=== PATIENT | female | born 1965 | race Caucasian/White ===

== ENCOUNTER 2016-05-14 11:38 | Emergency (ER) | payer MEDICARE, MEDICAID ==
--- NOTE | 2016-05-14 11:47 | EDM.PDOC ---
ED HISTORY OF PRESENT ILLNESS - General Chief Complaint: Respiratory Problem Stated Complaint: FEVER Time Seen by Provider: 05/14/16 11:46 Source of Information: Reports: Old records, Provider (Ivana CARTER), RN, RN notes reviewed, Other (caregiver) History Limitations: Reports: Physical impairment (Dev. delayed pt.) - History of Present Illness INITIAL COMMENTS - FREE TEXT/NARRATIVE: Sent from [facility] by POV at the request of Ivana CARTER with report of cough, fever, and decreased level of consciousness. Pt is a resident of [facility] with Hx of Dev. delay and congenital heart disease with chronically low oxygen sats. Pt unable to provide any Hx. Symptom Onset Date: 05/14/16 Timing/Duration: Reports: Constant Severity: moderate Location, General: Reports: generalized Improves with: Reports: None Worsens with: Reports: None Context, General: Reports: Sick contact (fdc resident) Treatments DATA ANALYSIS ASSISTANT: Reports: Other (see below) (none) - Related Data Allergies/ADRs: Allergies Allergy/AdvReac Type Severity Reaction Status Date / Time No Known Allergies Allergy Verified 09/27/14 16:26 Home Meds: Home Meds Aspirin 1 tab PO DAILY 09/27/14 [History] Benztropine Mesylate 1 tab PO BID 09/27/14 [History] Famotidine [Pepcid] 1 tab PO BID 09/27/14 [History] Oxybutynin [Oxybutynin ER] 5 mg PO BEDTIME 09/27/14 [History] PARoxetine [Paxil] 20 mg PO DAILY 09/27/14 [History] Vitamin E (dl, acetate) [Vitamin E] 1 tab PO DAILY 09/27/14 [History] atorvaSTATin [Lipitor] 1 tab PO BEDTIME 09/27/14 [History] diphenhydrAMINE [Benadryl] 1 tab PO BEDTIME 09/27/14 [History] risperiDONE [RisperiDAL] 0.5 tab PO QID 09/27/14 [History] Past Medical History HEENT History: Reports: Impaired vision Other HEENT History: tmj Cardiovascular History: Reports: Congenital septal defect, Heart murmur, High cholesterol, Other (see below) (chronic tachycardia) Respiratory History: Reports: Other (see below) (Chronic hypoxia) Genitourinary History: Reports: Urinary incontinence Psychiatric History: Reports: Depression, Developmental delay, Learning disability, Psychosis Other Psychiatric History: mood disorder with psychosis, profound hearing loss, 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 delayed pt.) ED EXAM, GENERAL - Physical Exam Exam: See Below Exam Limited By: Physical impairment (Dev. Delayed pt) General Appearance: alert, no apparent distress Eye Exam: bilateral eye: normal inspection Ears: normal external exam Nose: normal inspection, normal mucosa, no blood Throat/Mouth: No airway compromise, Other (mild pharyngeal erythema) Head: atraumatic, normocephalic Neck: normal inspection, supple, non-tender, full range of motion. No: lymphadenopathy (L), lymphadenopathy (R) Respiratory/Chest: no respiratory distress, no accessory muscle use, chest non- tender, decreased breath sounds, other (harsh dry cough). No: crackles, rales, rhonchi, wheezing, stridor Cardiovascular: normal peripheral pulses, regular rate, rhythm, tachycardia, systolic murmur (2/6) GI/Abdominal: normal bowel sounds, soft, non tender, no distention Back Exam: normal inspection Extremities: normal inspection Neurological: alert, no motor/sensory deficits, other (at neuro. baseline per caregiver) Skin Exam: Warm, Dry, Intact, Normal color, No rash Course - Vital Signs Last Recorded V/S: Last Vital Signs Temp 36.6 C 05/14/16 12:12 Pulse 97 05/14/16 13:45 Resp 15 05/14/16 12:12 BP 128/78 05/14/16 12:12 Pulse Ox 86 L 05/14/16 12:12 - Orders/Labs/Meds Orders: Active Orders 24 hr Category Date Time Status Cardiac Monitoring [RC] . DIRECTED Care 05/14/16 11:52 Active EKG 12 Lead [EKG Documentation Completion] [RC] STAT Care 05/14/16 11:53 Active Overnight Pulse Oximetry [RC] Click To Edit Care 05/14/16 11:54 Active Peripheral IV Care [RC] . DIRECTED Care 05/14/16 11:54 Active RT Aerosol Therapy [RC] ASDIRECTED Care 05/14/16 12:54 Active B. PERTUSSIS ABS, IGA, IGG,IGM [REF] Stat Lab 05/14/16 14:36 Ordered CULTURE BLOOD [] Stat Lab 05/14/16 12:10 Received CULTURE BLOOD [] Stat Lab 05/14/16 12:10 Received CULTURE STREP A CONFIRMATION [] Stat Lab 05/14/16 12:30 Results INFLUENZA A+B AG SCREEN [] Stat Lab 05/14/16 12:30 Results STREP SCRN A RAPID W CULT CONF [] Stat Lab 05/14/16 12:30 Results UA W/MICROSCOPIC [URIN] Stat Lab 05/14/16 11:54 Uncollected Sodium Chloride 0.9% [Normal Saline] 500 ml Med 05/14/16 13:00 Active IV .BOLUS Sodium Chloride 0.9% [Saline Flush] Med 05/14/16 11:53 Active 10 ml FLUSH ASDIRECTED PRN Blood Culture x2 Reflex Set [OM.PC] Stat Oth 05/14/16 11:54 Ordered Peripheral IV Insertion Adult [OM.PC] Stat Oth 05/14/16 11:53 Ordered Pulse Oximetry Continuous Monitoring [OM.PC] Routine Oth 05/14/16 11:54 Ordered RT Supplemental Oxygen Titration [RESPCARE] Stat Ot 05/14/16 11:54 Active Medication Orders Sodium Chloride (Normal Saline) 500 mls @ 500 mls/hr IV .BOLUS JABARI Last Admin: 05/14/16 14:12 Dose: 500 mls/hr Sodium Chloride (Saline Flush) 10 ml FLUSH ASDIRECTED PRN PRN Reason: Keep Vein Open Last Admin: 05/14/16 13:38 Dose: 10 ml Labs: Laboratory Tests 05/14/16 05/14/16 05/14/16 Range/Units 12:10 12:10 12:10 WBC 6.0 (5.0-10.0) 10^3/uL RBC 5.16 (4.2-5.4) 10^6/uL Hgb 16.0 (12.0-16.0) g/dL Hct 49.6 H (37.0-47.0) % MCV 96.1 (80-100) fL MCH 31.0 (27.0-34.0) pg MCHC 32.3 L (33.0-35.0) g/dL Plt Count 190 (150-450) 10^3/uL Neut % (Auto) 69.3 (42.2-75.2) % Lymph % (Auto) 18.6 L (20.5-50.1) % [place] % (Auto) 11.6 H (2-8) % Eos % (Auto) 0.2 L (1.0-3.0) % Baso % (Auto) 0.3 (0.0-1.0) % Sodium 132 L (135-145) mmol/L Potassium 3.8 (3.6-5.0) mmol/L Chloride 95 L (101-111) mmol/L Carbon Dioxide 29.0 (21.0-31.0) mmol/L Anion Gap 11.8 BUN 13 (7-18) mg/dL Creatinine 1.0 (0.6-1.3) mg/dL Est Cr Clr Drug Dosing 47.27 mL/min Estimated GFR (MDRD) 58 BUN/Creatinine Ratio 13.00 Glucose 107 H (74-105) mg/dL Lactic Acid (0.5-2.2) mmol/L Calcium 8.7 (8.4-10.2) mg/dl Total Bilirubin 0.6 (0.2-1.0) mg/dL AST 19 (10-42) IU/L ALT 19 (10-60) IU/L Alkaline Phosphatase 74 (42-121) IU/L Creatine Kinase 62 (26-174) IU/L Creatine Kinase Index 1.8 (0-2.4) % CK-MB (CK-2) 1.10 (0.4-4.7) ng/mL Troponin I < 0.02 (0.00-0.02) ng/ml B-Natriuretic Peptide 10 (0-100) pg/ml Total Protein 7.6 (6.7-8.2) g/dl Albumin 4.0 (3.2-5.5) g/dl Globulin 3.6 Albumin/Globulin Ratio 1.11 05/14/16 Range/Units 12:10 WBC (5.0-10.0) 10^3/uL RBC (4.2-5.4) 10^6/uL Hgb (12.0-16.0) g/dL Hct (37.0-47.0) % MCV (80-100) fL MCH (27.0-34.0) pg MCHC (33.0-35.0) g/dL Plt Count (150-450) 10^3/uL Neut % (Auto) (42.2-75.2) % Lymph % (Auto) (20.5-50.1) % [place] % (Auto) (2-8) % Eos % (Auto) (1.0-3.0) % Baso % (Auto) (0.0-1.0) % Sodium (135-145) mmol/L Potassium (3.6-5.0) mmol/L Chloride (101-111) mmol/L Carbon Dioxide (21.0-31.0) mmol/L Anion Gap BUN (7-18) mg/dL Creatinine (0.6-1.3) mg/dL Est Cr Clr Drug Dosing mL/min Estimated GFR (MDRD) BUN/Creatinine Ratio Glucose (74-105) mg/dL Lactic Acid 1.2 (0.5-2.2) mmol/L Calcium (8.4-10.2) mg/dl Total Bilirubin (0.2-1.0) mg/dL AST (10-42) IU/L ALT (10-60) IU/L Alkaline Phosphatase (42-121) IU/L Creatine Kinase (26-174) IU/L Creatine Kinase Index (0-2.4) % CK-MB (CK-2) (0.4-4.7) ng/mL Troponin I (0.00-0.02) ng/ml B-Natriuretic Peptide (0-100) pg/ml Total Protein (6.7-8.2) g/dl Albumin (3.2-5.5) g/dl Globulin Albumin/Globulin Ratio Meds: Medications Generic Name Dose Route Start Last Admin Trade Name Freq PRN Reason Stop Dose Admin Sodium Chloride 500 mls @ 500 mls/hr 05/14/16 13:00 05/14/16 14:12 Normal Saline IV 500 mls/hr .BOLUS JABARI Administration Sodium Chloride 10 ml 05/14/16 11:53 05/14/16 13:38 Saline Flush FLUSH 10 ml ASDIRECTED PRN Administration Keep Vein Open Discontinued Medications Generic Name Dose Route Start Last Admin Trade Name Freq PRN Reason Stop Dose Admin Albuterol/Ipratropium 3 ml 05/14/16 12:54 05/14/16 13:45 Duoneb 3.0-0.5 Mg/3 Ml NEB 05/14/16 12:55 3 ml ONETIME ONE Administration Azithromycin 500 mg 05/14/16 14:39 05/14/16 14:45 Zithromax PO 05/14/16 14:40 500 mg ONETIME ONE Administration Benzonatate 200 mg 05/14/16 12:54 05/14/16 13:48 Tessalon Perles PO 05/14/16 12:55 200 mg ONETIME ONE Administration Ceftriaxone Sodium 1 gm/ 50 mls @ 100 mls/hr 05/14/16 12:54 05/14/16 13:39 Sodium Chloride IV 05/14/16 13:23 100 mls/hr ONETIME ONE Administration Methylprednisolone Sodium Succinate 125 mg 05/14/16 12:54 05/14/16 13:37 Solu-Medrol IVPUSH 05/14/16 12:55 125 mg ONETIME ONE Administration - Radiology Interpretation Free Text/Narrative:: CXR: no acute process per Rad. report. CT Results Date: 05/14/16 Departure - Departure Time of Disposition: 14:40 Disposition: Home, Self-Care 01 Condition: fair Clinical Impression: Hypoxia Acute bronchitis Qualifiers: Bronchitis organism: unspecified organism Qualified Code(s): J20.9 - Acute bronchitis, unspecified Pharyngitis Qualifiers: Pharyngitis/tonsillitis etiology: unspecified etiology Qualified Code(s): J02.9 - Acute pharyngitis, unspecified Instructions: Acute Bronchitis Forms: ED Department Discharge Additional Instructions: Rx: Zithromax 250mg Rx: Tessalon Perles 200mg Follow up in clinic in 4 to 5 days. Return to ER if worse at any time, or if any new symptoms develop. - My Orders Last 24 Hours: My Active Orders 05/14/16 11:52 Cardiac Monitoring [RC] . DIRECTED 05/14/16 11:53 EKG 12 Lead [EKG Documentation Completion] [RC] STAT Sodium Chloride 0.9% [Saline Flush] 10 ml FLUSH ASDIRECTED PRN Peripheral IV Insertion Adult [OM.PC] Stat 03/02/17 11:54 Overnight Pulse Oximetry [RC] Click To Edit Peripheral IV Care [RC] . DIRECTED UA W/MICROSCOPIC [URIN] Stat Blood Culture x2 Reflex Set [OM.PC] Stat Pulse Oximetry Continuous Monitoring [OM.PC] Routine RT Supplemental Oxygen Titration [RESPCARE] Stat 05/14/16 12:10 CULTURE BLOOD [BC] Stat CULTURE BLOOD [BC] Stat 05/14/16 12:30 CULTURE STREP A CONFIRMATION [RM] Stat INFLUENZA A+B AG SCREEN [RM] Stat STREP SCRN A RAPID W CULT CONF [RM] Stat 05/14/16 12:54 RT Aerosol Therapy [RC] ASDIRECTED 05/14/16 13:00 Sodium Chloride 0.9% [Normal Saline] 500 ml IV .BOLUS 05/14/16 14:36 B. PERTUSSIS ABS, IGA, IGG,IGM [REF] Stat - Assessment/Plan Last 24 Hours: My Active Orders 05/14/16 11:52 Cardiac Monitoring [RC] . DIRECTED 05/14/16 11:53 EKG 12 Lead [EKG Documentation Completion] [RC] STAT Sodium Chloride 0.9% [Saline Flush] 10 ml FLUSH ASDIRECTED PRN Peripheral IV Insertion Adult [OM.PC] Stat 05/14/16 11:54 Overnight Pulse Oximetry [RC] Click To Edit Peripheral IV Care [RC] . DIRECTED UA W/MICROSCOPIC [URIN] Stat Blood Culture x2 Reflex Set [OM.PC] Stat Pulse Oximetry Continuous Monitoring [OM.PC] Routine RT Supplemental Oxygen Titration [RESPCARE] Stat 05/14/16 12:10 CULTURE BLOOD [BC] Stat CULTURE BLOOD [BC] Stat 05/14/16 12:30 CULTURE STREP A CONFIRMATION [RM] Stat INFLUENZA A+B AG SCREEN [RM] Stat STREP SCRN A RAPID W CULT CONF [RM] Stat 05/14/16 12:54 RT Aerosol Therapy [RC] ASDIRECTED 05/14/16 13:00 Sodium Chloride 0.9% [Normal Saline] 500 ml IV .BOLUS 05/14/16 14:36 B. PERTUSSIS ABS, IGA, IGG,IGM [REF] Stat
[2016-05-14] MEDS ORDERED: Sodium Chloride 0.9% 10 ML Syringe FLUSH PRN (11:53)
[2016-05-14 12:15] VITALS: BP 128/78
[2016-05-14 12:40] LABS: CHLORIDE,CL 95 mmol/L (101-111); SODIUM,NA 132 mmol/L (135-145)
[2016-05-14] MEDS ORDERED: cefTRIAXone 1 GM in Sodium Chloride 0.9% 50 ML IV ONE (12:54)
[2016-05-14] MEDS ORDERED: Benzonatate 100 MG Cap PO ONE (12:54)
[2016-05-14] MEDS ORDERED: methylPREDNISolone Sodium Succinate 125 MG/2 ML SDV IVPUSH ONE (12:54)
[2016-05-14] MEDS ORDERED: Albuterol/Ipratropium 3.0-0.5 MG/3 ML Neb Soln NEB ONE (12:54)
[2016-05-14] MEDS ORDERED: Sodium Chloride 0.9% 500 ML IV SCH (13:00)
--- NOTE | 2016-05-14 14:22 | CR ---
CLINICAL HISTORY: 51-year-old female with cough and hypoxia. INTERPRETATION: Chronic hypertrophic arthritic changes dorsal spine. External compliance monitor leads and oxygen cannula. Normal cardiac silhouette without new signs of heart failure, lung mass or focal lobar pneumonia (co mpared to 29 Jul 2015 exam). No lung mass, hilar lymphadenopathy or atelectasis/collapse. No pneumothorax. CONCLUSION: No acute new cardiopulmonary abnormality.
[2016-05-14] MEDS ORDERED: Azithromycin 250 MG Tab PO ONE (14:39)
--- NOTE | 2016-05-26 17:58 | EKG ---
05/14/2016 - АЛЕКСАНДР MOROCHO - TIME OF EK hours. EKG shows sinus tachycardia at a rate of 109 beats per minute. There is a right bundle branch block present. [facility] /[id number]
== END 2016-05-14 15:31 | disposition home or self-care (01) ==
LOC: DL.ED 11:38
DX: J20.9 Acute bronchitis, unspecified (principal); J02.9 Acute pharyngitis, unspecified; R09.02 Hypoxemia; E78.00 Pure hypercholesterolemia, unspecified; Z79.82 Long term (current) use of aspirin; Z79.899 Other long term (current) drug therapy
CPT/HCPCS: 36415; 71010; 80053; 82550; 82553; 83605; 83880; 84484; 85025; 87040; 87081; 87430; 87804; 93005; 94640; 96361; 96365; 96375; 99284; A9270; J0696; J2930; J7040; J7050; 87798; 93010

== ENCOUNTER 2017-10-22 15:31 | Emergency (ER) | payer MEDICARE, MEDICAID ==
[2017-10-22 16:27] VITALS: BP 152/93
[2017-10-22 17:40] LABS: ANION GAP 9.9; CHLORIDE,CL 97 mmol/L (101-111); SODIUM,NA 134 mmol/L (135-145)
--- NOTE | 2017-10-22 18:04 | EDM.PDOC ---
Scribed by Jeannie Oconnell 10/22/17 1939 for Jonathan Bonilla MD ED HPI GENERAL MEDICAL PROBLEM - General Chief Complaint: Respiratory Problem Stated Complaint: SICK [phone] Time Seen by Provider: 10/22/17 16:55 Source of Information: Reports: RN, RN Notes Reviewed, Other (grounds caretaker) History Limitations: Reports: No Limitations - History of Present Illness INITIAL COMMENTS - FREE TEXT/NARRATIVE: Patient presents to ER with cough for 2 weeks worse the last several days. Denies fever. Patient is deaf and nonverbal with developmental delay. History is from grounds caretaker. Cough is reported to be dry and nonproductive. No other history is available at this time. Onset: Gradual Duration: Getting Worse Location: Reports: Chest Quality: Reports: Ache Severity: Moderate Improves with: Reports: None Worsens with: Reports: None Associated Symptoms: Reports: No Other Symptoms - Related Data Allergies Allergy/AdvReac Type Severity Reaction Status Date / Time No Known Allergies Allergy Verified 10/22/17 16:27 Home Meds: Home Meds Aspirin 1 tab PO DAILY 09/27/14 [History] PARoxetine [Paxil] 20 mg PO DAILY 09/27/14 [History] Vitamin E (dl, acetate) [Vitamin E] 1 tab PO DAILY 09/27/14 [History] atorvaSTATin [Lipitor] 1 tab PO BEDTIME 09/27/14 [History] risperiDONE [RisperiDAL] 0.5 tab PO TID 09/27/14 [History] Omeprazole 20 mg PO DAILY 10/22/17 [History] Polyethylene Glycol 3350 [MiraLAX] 17 gm PO ASDIRECTED 10/22/17 [History] risperiDONE 1 mg PO DAILY 10/22/17 [History] Past Medical History HEENT History: Reports: Impaired Vision, Other (See Below) Other HEENT History: wears glasses, is deaf, understands sign language Cardiovascular History: Reports: Congenital Septal Defect, Heart Murmur, High Cholesterol, Other (See Below) Respiratory History: Reports: Other (See Below) Other Respiratory History: wears O2 at night Gastrointestinal History: Reports: GERD Genitourinary History: Reports: Urinary Incontinence SHOE CEMENTER History: Reports: None Musculoskeletal History: Reports: None Neurological History: Reports: None Psychiatric History: Reports: Depression, Developmental Delay, Learning Disability, Psychosis Other Psychiatric History: mood disorder with psychosis, profound hearing loss, mild mental retardation Endocrine/Metabolic History: Reports: None Hematologic History: Reports: None Immunologic History: Reports: None Oncologic (Cancer) History: Reports: None Other Dermatologic History: congenital rubella disorder - Past Surgical History Head Surgeries/Procedures: Reports: None Other GI Surgeries/Procedures: hiatal hernia Social & Family History - Family History Family Medical History: Unobtainable - Tobacco Use Smoking Status *Q: Never Smoker Second Hand Smoke Exposure: No - Caffeine Use Caffeine Use: Reports: Soda - Recreational Drug Use Recreational Drug Use: No - Living Situation & Occupation Living situation: Reports: Other Occupation: Disabled ED ROS GENERAL - Review of Systems Review Of Systems: ROS reveals no pertinent complaints other than HPI. ED EXAM, GENERAL - Physical Exam Exam: See Below Exam Limited By: Other (developmentally delayed) General Appearance: Alert, No Apparent Distress Eye Exam: Bilateral Eye: Normal Inspection Nose: Normal Inspection Throat/Mouth: Other (patient wound not cooperate with exam.) Head: Atraumatic, Normocephalic Neck: Normal Inspection, Supple, Non-Tender, Full Range of Motion Respiratory/Chest: No Respiratory Distress, Other (harsh dry cough) Cardiovascular: Regular Rate, Rhythm, Tachycardia GI/Abdominal: Soft (and benign) (Female) Exam: Deferred Rectal (Female) Exam: Deferred Extremities: Normal Inspection, Normal Range of Motion, Non-Tender, Normal Capillary Refill, No Pedal Edema Neurological: Other (no acute deficits) Skin Exam: Warm, Dry, Intact, Normal Color, No Rash Course - Vital Signs Last Recorded V/S: Last Vital Signs Temp 36.0 C 10/22/17 16:26 Pulse 103 H 10/22/17 16:26 Resp 20 10/22/17 16:26 BP 152/93 H 10/22/17 16:26 Pulse Ox 88 L 10/22/17 16:26 - Orders/Labs/Meds Orders: Active Orders 24 hr Category Date Time Status Chest 1V Frontal [CR] Stat Exams 10/22/17 16:55 Taken Labs: Laboratory Tests 10/22/17 10/22/17 10/22/17 Range/Units 17:05 17:05 17:05 WBC 6.9 (5.0-10.0) 10^3/uL RBC 5.11 (4.2-5.4) 10^6/uL Hgb 15.7 (12.0-16.0) g/dL Hct 48.9 H (37.0-47.0) % MCV 95.7 (80-100) fL MCH 30.7 (27.0-34.0) pg MCHC 32.1 L (33.0-35.0) g/dL Plt Count 215 (150-450) 10^3/uL Neut % (Auto) 63.3 (42.2-75.2) % Lymph % (Auto) 23.3 (20.5-50.1) % [place] % (Auto) 11.1 H (2-8) % Eos % (Auto) 2.0 (1.0-3.0) % Baso % (Auto) 0.3 (0.0-1.0) % Sodium 134 L (135-145) mmol/L Potassium 3.9 (3.6-5.0) mmol/L Chloride 97 L (101-111) mmol/L Carbon Dioxide 31.0 (21.0-31.0) mmol/L Anion Gap 9.9 BUN 15 (7-18) mg/dL Creatinine 0.7 (0.6-1.3) mg/dL Est Cr Clr Drug Dosing TNP Estimated GFR (MDRD) > 60 BUN/Creatinine Ratio 21.42 Glucose 78 (74-105) mg/dL Lactic Acid 1.1 (0.5-2.2) mmol/L Calcium 9.0 (8.4-10.2) mg/dl Total Bilirubin 0.6 (0.2-1.0) mg/dL AST 20 (10-42) IU/L ALT 20 (10-60) IU/L Alkaline Phosphatase 69 (42-121) IU/L Total Protein 6.9 (6.7-8.2) g/dl Albumin 3.7 (3.2-5.5) g/dl Globulin 3.2 Albumin/Globulin Ratio 1.16 Urine Color (YELLOW) Urine Appearance (CLEAR) Urine pH (5.0-9.0) Ur Specific [place] (1.005-1.030) Urine Protein (NEGATIVE) Urine Glucose (UA) (NEGATIVE) Urine Ketones (NEGATIVE) Urine Occult Blood (NEGATIVE) Urine Nitrite (NEGATIVE) Urine Bilirubin (NEGATIVE) Urine Urobilinogen (0.2-1.0) mg/dL Ur Leukocyte Esterase (NEGATIVE) Urine RBC /HPF Urine WBC (0-5/HPF) /HPF Ur Epithelial Cells /HPF Urine Bacteria (0-FEW/HPF) /HPF 10/22/17 Range/Units 17:23 WBC (5.0-10.0) 10^3/uL RBC (4.2-5.4) 10^6/uL Hgb (12.0-16.0) g/dL Hct (37.0-47.0) % MCV (80-100) fL MCH (27.0-34.0) pg MCHC (33.0-35.0) g/dL Plt Count (150-450) 10^3/uL Neut % (Auto) (42.2-75.2) % Lymph % (Auto) (20.5-50.1) % [place] % (Auto) (2-8) % Eos % (Auto) (1.0-3.0) % Baso % (Auto) (0.0-1.0) % Sodium (135-145) mmol/L Potassium (3.6-5.0) mmol/L Chloride (101-111) mmol/L Carbon Dioxide (21.0-31.0) mmol/L Anion Gap BUN (7-18) mg/dL Creatinine (0.6-1.3) mg/dL Est Cr Clr Drug Dosing Estimated GFR (MDRD) BUN/Creatinine Ratio Glucose (74-105) mg/dL Lactic Acid (0.5-2.2) mmol/L Calcium (8.4-10.2) mg/dl Total Bilirubin (0.2-1.0) mg/dL AST (10-42) IU/L ALT (10-60) IU/L Alkaline Phosphatase (42-121) IU/L Total Protein (6.7-8.2) g/dl Albumin (3.2-5.5) g/dl Globulin Albumin/Globulin Ratio Urine Color Straw (YELLOW) Urine Appearance Clear (CLEAR) Urine pH 6.0 (5.0-9.0) Ur Specific [place] <= 1.005 (1.005-1.030) Urine Protein Negative (NEGATIVE) Urine Glucose (UA) Negative (NEGATIVE) Urine Ketones Negative (NEGATIVE) Urine Occult Blood Negative (NEGATIVE) Urine Nitrite Negative (NEGATIVE) Urine Bilirubin Negative (NEGATIVE) Urine Urobilinogen 0.2 (0.2-1.0) mg/dL Ur Leukocyte Esterase Small H (NEGATIVE) Urine RBC 0-5 /HPF Urine WBC 0-5 (0-5/HPF) /HPF Ur Epithelial Cells Few /HPF Urine Bacteria Occasional (0-FEW/HPF) /HPF - Radiology Interpretation Free Text/Narrative:: Chest x-ray: Atelectasis and/or early infiltrative changes within both lung bases. See rad report. Departure - Departure Time of Disposition: 17:50 Disposition: Home, Self-Care 01 Condition: Fair Clinical Impression: Atelectasis of both lungs Pneumonia Qualifiers: Pneumonia type: due to unspecified organism Laterality: bilateral Lung location : lower lobe of lung Qualified Code(s): J18.1 - Lobar pneumonia, unspecified organism - Discharge Information Instructions: Atelectasis, Adult, Community-Acquired Pneumonia, Adult, Easy-to- Read Referrals: Ivana Harris, [employer]AKING [employer] SUPERVISOR [Primary Care Provider] - Forms: ED Department Discharge Additional Instructions: RX: Levaguin 500mg. Follow up next week with your primary care provider. - My Orders Last 24 Hours: My Active Orders 10/22/17 16:55 Chest 1V Frontal [CR] Stat - Assessment/Plan Last 24 Hours: My Active Orders 10/22/17 16:55 Chest 1V Frontal [CR] Stat I have read and agree with the documentation that has been completed regarding this visit. By signing this record, I attest that the documentation was completed in my physical presence and is an accurate record of the encounter.
== END 2017-10-22 18:34 | disposition home or self-care (01) ==
LOC: DL.ED 15:31
DX: J18.9 Pneumonia, unspecified organism (principal); J98.11 Atelectasis; Z79.899 Other long term (current) drug therapy; Z79.82 Long term (current) use of aspirin
CPT/HCPCS: 36415; 71045; 80053; 81001; 83605; 85025; 99283; 99285

== ENCOUNTER 2019-06-14 14:30 | Emergency (ER) | payer MEDICARE, MEDICAID ==
[2019-06-14 14:42] VITALS: BP 134/85; PULSE 106
--- NOTE | 2019-06-14 14:50 | EDM.PDOC ---
ED HPI GENERAL MEDICAL PROBLEM - General Chief Complaint: Respiratory Problem Stated Complaint: COUGH, SORE THROAT Time Seen by Provider: 06/14/19 14:49 Source of Information: Reports: Old Records, RN, RN Notes Reviewed, Other ( Caregiver) History Limitations: Reports: Other (Deaf, non-verbal) - History of Present Illness INITIAL COMMENTS - FREE TEXT/NARRATIVE: Pt presented to ER by caregiver from [facility] apartment with report of cough x2 weeks with sore throat and low oxygen saturations. Pt has Hx of MR and is deaf. Hx of chronic hypoxia with supplemental home oxygen use at night. Pt is unable to provide any history. Caregiver does not think pt has had any fevers. Pt was able to ambulate to the ER independently. Caregiver reports pt's roommate tested negative for Covid-19 four days ago. Onset: Unknown/Unsure Duration: Week(s): (2), Constant Location: Reports: Chest Severity: Moderate Improves with: Reports: None Worsens with: Reports: None Context: Reports: Sick Contact (unknown) - Related Data Allergies Allergy/AdvReac Type Severity Reaction Status Date / Time No Known Allergies Allergy Verified 06/14/19 14:51 Home Meds: Home Meds Aspirin 325 mg PO DAILY 09/27/14 [History] PARoxetine [Paxil] 20 mg PO DAILY 09/27/14 [History] Vitamin E (dl, acetate) [Vitamin E] 400 units PO DAILY 09/27/14 [History] atorvaSTATin [Lipitor] 10 mg PO BEDTIME 09/27/14 [History] risperiDONE [RisperiDAL] 0.5 tab PO ASDIRECTED 09/27/14 [History] Omeprazole 20 mg PO DAILY 10/22/17 [History] polyethylene glycoL 3350 [MiraLAX] 17 gm PO ASDIRECTED 10/22/17 [History] risperiDONE 1 mg PO ASDIRECTED 10/22/17 [History] Past Medical History HEENT History: Reports: Impaired Vision, Other (See Below) Other HEENT History: wears glasses, is deaf, understands sign language Cardiovascular History: Reports: Congenital Septal Defect, Heart Murmur, High Cholesterol, Other (See Below) Respiratory History: Reports: SOB, Other (See Below) (Chronic hypoxia) Other Respiratory History: wears O2 at night Gastrointestinal History: Reports: GERD Genitourinary History: Reports: Urinary Incontinence 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 Musculoskeletal History: Reports: None Neurological History: Reports: None Psychiatric History: Reports: Depression, Developmental Delay, Learning Disability, Psychosis Other Psychiatric History: mood disorder with psychosis, profound hearing loss, mild mental retardation Endocrine/Metabolic History: Reports: None Hematologic History: Reports: None Immunologic History: Reports: None Oncologic (Cancer) History: Reports: None Other Dermatologic History: congenital rubella disorder - Past Surgical History Head Surgeries/Procedures: Reports: None Other GI Surgeries/Procedures: hiatal hernia Social & Family History - Family History Family Medical History: Unobtainable - Caffeine Use Caffeine Use: Reports: Soda - Living Situation & Occupation Living situation: Reports: Other Occupation: Disabled ED ROS GENERAL - Review of Systems Review Of Systems: Unable To Obtain Reason Not Obtained: non-verbal ED EXAM, GENERAL - Physical Exam Exam: See Below Exam Limited By: Uncooperative (MR, deaf) General Appearance: Alert, No Apparent Distress Ears: Other (deaf) Nose: Normal Inspection Throat/Mouth: Normal Lips, No Airway Compromise. No: Perioral Cyanosis Head: Atraumatic, Normocephalic Neck: Normal Inspection, Full Range of Motion Respiratory/Chest: No Respiratory Distress, No Accessory Muscle Use, Decreased Breath Sounds, Other (Cough) Cardiovascular: Regular Rate, Rhythm, Tachycardia GI/Abdominal: Normal Bowel Sounds, Soft Extremities: Normal Range of Motion Neurological: Alert, No Motor/Sensory Deficits Skin Exam: Warm, Dry Course - Vital Signs Last Recorded V/S: Last Vital Signs Temp 97.9 F 06/14/19 14:38 Pulse 106 H 06/14/19 14:38 Resp 26 H 06/14/19 14:38 BP 134/85 06/14/19 14:38 Pulse Ox 74 L 06/14/19 14:38 - Orders/Labs/Meds Orders: Active Orders 24 hr Category Date Time Status Peripheral IV Care [RC] . DIRECTED Care 06/14/19 15:16 Active CULTURE BLOOD [BC] Stat Lab 06/14/19 15:10 Received CULTURE STREP A CONFIRMATION [RM] Stat Lab 06/14/19 15:10 Results STREP SCRN A RAPID W CULT CONF [RM] Stat Lab 06/14/19 15:10 Results Sodium Chloride 0.9% [Saline Flush] Med 06/14/19 15:16 Active 10 ml FLUSH ASDIRECTED PRN Isolation [COMM] Routine Oth 06/14/19 15:15 Active Peripheral IV Insertion Adult [OM.PC] Stat Oth 06/14/19 15:15 Ordered Medication Orders Sodium Chloride (Saline Flush) 10 ml FLUSH ASDIRECTED PRN PRN Reason: Keep Vein Open Last Admin: 06/14/19 15:20 Dose: 10 ml Labs: Laboratory Tests 06/14/19 06/14/19 06/14/19 Range/Units 15:10 15:10 15:10 WBC 6.3 (5.0-10.0) 10^3/uL RBC 5.51 H (4.2-5.4) 10^6/uL Hgb 16.9 H (12.0-16.0) g/dL Hct 53.5 H (37.0-47.0) % MCV 97.1 (80-100) fL MCH 30.7 (27.0-34.0) pg MCHC 31.6 L (33.0-35.0) g/dL Plt Count 204 (150-450) 10^3/uL Neut % (Auto) 60.5 (42.2-75.2) % Lymph % (Auto) 22.8 (20.5-50.1) % Charlton % (Auto) 10.4 H (2-8) % Eos % (Auto) 5.8 H (1.0-3.0) % Baso % (Auto) 0.5 (0.0-1.0) % Add Manual Diff Yes Neutrophils % (Manual) 60 (42-75) % Lymphocytes % (Manual) 27 (20-50) % Monocytes % (Manual) 7 (2-8) % Eosinophils % (Manual) 6 H (1-3) % Sodium 141 (136-145) mmol/L Potassium 4.4 (3.5-5.1) mmol/L Chloride 101 (98-107) mmol/L Carbon Dioxide 36 H (21-32) mmol/L Anion Gap 8.4 (7-13) mEq/L BUN 14 (7-18) mg/dL Creatinine 0.89 (0.55-1.02) mg/dL Est Cr Clr Drug Dosing 51.30 mL/min Estimated GFR (MDRD) > 60 BUN/Creatinine Ratio 15.7 (No establ ref range) Glucose 113 H (74-99) mg/dL Lactic Acid 1.5 (0.4-2.0) mmol/L Calcium 8.0 L (8.5-10.1) mg/dL Total Bilirubin 0.3 (0.2-1.0) mg/dL AST 15 (15-37) U/L ALT 24 (14-59) U/L Alkaline Phosphatase 79 (46-116) U/L B-Natriuretic Peptide < 5 (0-100) pg/ml Total Protein 6.6 (6.4-8.2) g/dL Albumin 3.1 L (3.4-5.0) g/dL Globulin 3.5 Albumin/Globulin Ratio 0.89 Influenza A/B: negative Rapid Strep: negative Meds: Medications Generic Name Dose Route Start Last Admin Trade Name Freq PRN Reason Stop Dose Admin Sodium Chloride 10 ml 06/14/19 15:16 06/14/19 15:20 Saline Flush FLUSH 10 ml ASDIRECTED PRN Administration Keep Vein Open - Radiology Interpretation Free Text/Narrative:: XR Chest: no acute process per Rad. report. Departure - Departure Time of Disposition: 17:20 Disposition: Home, Self-Care 01 Condition: Good Clinical Impression: Acute viral bronchitis, Chronic respiratory failure with hypoxia, on home O2 therapy - Discharge Information *PRESCRIPTION DRUG MONITORING PROGRAM REVIEWED*: Not Applicable *COPY OF PRESCRIPTION DRUG MONITORING REPORT IN PATIENT YANDY: Not Applicable Instructions: Home Oxygen Use, Adult, Acute Bronchitis, Adult Forms: ED Department Discharge Additional Instructions: Rx: Robitussin DM (cough suppressant) Continue supplemental home oxygen use. Follow up in clinic for recheck if needed. Sepsis Event Note - Evaluation Sepsis Screening Result: No Definite Risk - Focused Exam Vital Signs: Vital Signs Temp Pulse Resp BP Pulse Ox 06/14/19 14:38 97.9 F 106 H 26 H 134/85 74 L Date Exam was Performed: 06/14/19 Time Exam was Performed: 17:27 - My Orders Last 24 Hours: My Active Orders 06/14/19 15:10 CULTURE BLOOD [BC] Stat CULTURE STREP A CONFIRMATION [RM] Stat STREP SCRN A RAPID W CULT CONF [RM] Stat 06/14/19 15:15 Isolation [COMM] Routine Peripheral IV Insertion Adult [OM.PC] Stat 06/14/19 15:16 Peripheral IV Care [RC] . DIRECTED Sodium Chloride 0.9% [Saline Flush] 10 ml FLUSH ASDIRECTED PRN - Assessment/Plan Last 24 Hours: My Active Orders 06/14/19 15:10 CULTURE BLOOD [BC] Stat CULTURE STREP A CONFIRMATION [RM] Stat STREP SCRN A RAPID W CULT CONF [RM] Stat 06/14/19 15:15 Isolation [COMM] Routine Peripheral IV Insertion Adult [OM.PC] Stat 06/14/19 15:16 Peripheral IV Care [RC] . DIRECTED Sodium Chloride 0.9% [Saline Flush] 10 ml FLUSH ASDIRECTED PRN
[2019-06-14] MEDS ORDERED: Sodium Chloride 0.9% 10 ML Syringe FLUSH PRN (15:16)
[2019-06-14 15:46] LABS: ANION GAP 8.4 mEq/L (7-13); CHLORIDE,CL 101 mmol/L (98-107); SODIUM,NA 141 mmol/L (136-145)
--- NOTE | 2019-06-14 15:47 | CR ---
EXAMINATION: Chest 1V Frontal SEX: Female AGE: 54 years CLINICAL HISTORY: 54-year-old female emergency department with cough and hypoxia Interpretation: Reasonable inspiratory effort obese female with external patient monitor leads and oxygen cannula. No acute new cardiopulmonary abnormality since comparison exam 22 October 2017. Normal cardiac silhouette and pulmonary vascularity. No congestion, cephalization of flow, alveolar edema or dependent effusion. No lung mass, hilar lymphadenopathy or focal lobar pneumonia. No atelectasis, infiltrate or collapse. No pneumothorax or pneumomediastinum. Midline tracheal airway unremarkable. No no air trapping or free subdiaphragmatic air. No foreign bodies. CONCLUSION:: No acute cardiopulmonary abnormality.
== END 2019-06-14 17:34 | disposition home or self-care (01) ==
LOC: DL.ED 14:30
DX: J96.11 Chronic respiratory failure with hypoxia (principal); J20.8 Acute bronchitis due to other specified organisms; E78.00 Pure hypercholesterolemia, unspecified; K21.9 Gastro-esophageal reflux disease without esophagitis; F32.9 Major depressive disorder, single episode, unspecified; Z79.82 Long term (current) use of aspirin; Z79.899 Other long term (current) drug therapy
CPT/HCPCS: 36415; 71045; 80053; 83605; 83880; 85025; 87040; 87081; 87430; 87804; 99283; 99283-25

== ENCOUNTER 2019-08-10 08:18 | Emergency (ER) | payer MEDICARE, MEDICAID, OTHER ==
[2019-08-10 08:34] VITALS: BP 124/69; PULSE 108
--- NOTE | 2019-08-10 09:09 | EDM.PDOC ---
ED HPI GENERAL MEDICAL PROBLEM - General Chief Complaint: Respiratory Problem Stated Complaint: PALE/PASSED OUT Time Seen by Provider: 08/10/19 08:50 Source of Information: Reports: Other (Caregiver) History Limitations: Reports: Other (Hearing impaired) - History of Present Illness INITIAL COMMENTS - FREE TEXT/NARRATIVE: This 54 yo female patient was brought to the ED by her caregiver due to an episode of "passing out" this morning while sitting down to breakfast. The patient's caregivers have noticed that the patient was having increased difficulties starting yesterday, but they could not identify what was actually happening. The caregiver that accompanied the patient to the ED reports the patient does have a chronic cough and "some kind of lung thing going on." Onset Date: 08/09/19 Duration: Constant, Getting Worse Location: Reports: Chest Quality: Reports: Other Severity: Moderate Improves with: Reports: None Worsens with: Reports: None Context: Reports: Other Associated Symptoms: Reports: Cough, Shortness of Breath, Syncope (near syncope) - Related Data Allergies Allergy/AdvReac Type Severity Reaction Status Date / Time No Known Allergies Allergy Verified 08/10/19 08:39 Home Meds: Home Meds Aspirin 325 mg PO DAILY 09/27/14 [History] PARoxetine [Paxil] 20 mg PO DAILY 09/27/14 [History] Vitamin E (dl, acetate) [Vitamin E] 400 units PO DAILY 09/27/14 [History] atorvaSTATin [Lipitor] 10 mg PO BEDTIME 09/27/14 [History] risperiDONE [RisperiDAL] 0.5 mg PO ASDIRECTED 09/27/14 [History] Omeprazole 20 mg PO DAILY 10/22/17 [History] polyethylene glycoL 3350 [MiraLAX] 17 gm PO ASDIRECTED 10/22/17 [History] risperiDONE 1 mg PO ASDIRECTED 10/22/17 [History] Past Medical History HEENT History: Reports: Impaired Vision, Other (See Below) Other HEENT History: wears glasses, is deaf, understands sign language Cardiovascular History: Reports: Congenital Septal Defect, Heart Murmur, High Cholesterol, Other (See Below) Respiratory History: Reports: SOB, Other (See Below) Other Respiratory History: wears O2 at night and PRN days Gastrointestinal History: Reports: GERD Genitourinary History: Reports: Urinary Incontinence 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 Musculoskeletal History: Reports: None Neurological History: Reports: None Psychiatric History: Reports: Depression, Developmental Delay, Learning Disability, Psychosis Other Psychiatric History: mood disorder with psychosis, profound hearing loss, mild mental retardation Endocrine/Metabolic History: Reports: None Hematologic History: Reports: None Immunologic History: Reports: None Oncologic (Cancer) History: Reports: None Other Dermatologic History: congenital rubella disorder - Infectious Disease History Infectious Disease History: Reports: None - Past Surgical History Head Surgeries/Procedures: Reports: None Other GI Surgeries/Procedures: hiatal hernia Social & Family History - Family History Family Medical History: Unobtainable - Tobacco Use Smoking Status *Q: Never Smoker Second Hand Smoke Exposure: No - Caffeine Use Caffeine Use: Reports: Coffee - Recreational Drug Use Recreational Drug Use: No - Living Situation & Occupation Living situation: Reports: Other Occupation: Disabled ED ROS GENERAL - Review of Systems Review Of Systems: Comprehensive ROS is negative, except as noted in HPI. ED EXAM, GENERAL - Physical Exam Exam: See Below Exam Limited By: No Limitations General Appearance: Alert, WD/WN, No Apparent Distress, Obese Eye Exam: Bilateral Eye: EOMI, Normal Inspection, PERRL Ears: Normal External Exam, Normal Canal, Hearing Grossly Normal, Normal TMs Nose: Normal Inspection, Normal Mucosa, No Blood Throat/Mouth: Normal Inspection, Normal Lips, Normal Teeth, Normal Gums, Normal Oropharynx, Normal Voice, No Airway Compromise Head: Atraumatic, Normocephalic Neck: Normal Inspection, Supple, Non-Tender, Full Range of Motion Respiratory/Chest: Chest Non-Tender, Decreased Breath Sounds Cardiovascular: Normal Peripheral Pulses, Regular Rate, Rhythm, No Edema, No Gallop, No JVD, No Murmur, No Rub GI/Abdominal: Normal Bowel Sounds, Soft, Non-Tender, No Organomegaly, No Distention, No Abnormal Bruit, No Mass (Female) Exam: Deferred Rectal (Female) Exam: Deferred Extremities: Normal Inspection, Normal Range of Motion, Non-Tender, Normal Capillary Refill, No Pedal Edema Neurological: Alert, CN II-XII Intact, Other (Interactive with environment ( normal for the patient according to her caregiver)) Psychiatric: Normal Affect, Normal Mood Skin Exam: Warm, Dry, Intact, Normal Color, No Rash Lymphatic: No Adenopathy Course - Vital Signs Last Recorded V/S: Last Vital Signs Temp 35.8 C L 05/28/20 08:33 Pulse 108 H 08/10/19 08:33 Resp 15 08/10/19 08:33 BP 124/69 08/10/19 08:33 Pulse Ox 86 L 08/10/19 08:33 - Orders/Labs/Meds Orders: Active Orders 24 hr Category Date Time Status EKG Documentation Completion [RC] STAT Care 08/10/19 08:19 Active CORONAVIRUS COVID-19 RAPID PCR [MOLEC] Urgent Lab 08/10/19 09:35 Received CULTURE BLOOD [BC] Stat Lab 08/10/19 08:46 Received CULTURE BLOOD [BC] Stat Lab 08/10/19 09:42 Ordered cefTRIAXone [Rocephin] 1 gm Med 08/10/19 09:43 Ordered Sodium Chloride 0.9% [Normal Saline] 50 ml IV ONETIME Medication Orders Ceftriaxone Sodium 1 gm/ (Sodium Chloride) 50 mls @ 100 mls/hr IV ONETIME ONE Stop: 08/10/19 10:12 Labs: Laboratory Tests 08/10/19 08/10/19 08/10/19 Range/Units 08:52 08:52 08:52 WBC 6.1 (5.0-10.0) 10^3/uL RBC 5.88 H (4.2-5.4) 10^6/uL Hgb 16.8 H (12.0-16.0) g/dL Hct 55.3 H (37.0-47.0) % MCV 94.0 D (80-100) fL MCH 28.6 (27.0-34.0) pg MCHC 30.4 L (33.0-35.0) g/dL Plt Count 210 (150-450) 10^3/uL Neut % (Auto) 83.3 H (42.2-75.2) % Lymph % (Auto) 9.4 L (20.5-50.1) % Barrow % (Auto) 5.3 (2-8) % Eos % (Auto) 1.8 (1.0-3.0) % Baso % (Auto) 0.2 (0.0-1.0) % Sodium 140 (136-145) mmol/L Potassium 4.2 (3.5-5.1) mmol/L Chloride 101 (98-107) mmol/L Carbon Dioxide 39 H (21-32) mmol/L Anion Gap 4.2 L (7-13) mEq/L BUN 14 (7-18) mg/dL Creatinine 1.11 H (0.55-1.02) mg/dL Est Cr Clr Drug Dosing 45.29 mL/min Estimated GFR (MDRD) 51 BUN/Creatinine Ratio 12.6 (No establ ref range) Glucose 127 H (74-99) mg/dL Lactic Acid 1.2 (0.4-2.0) mmol/L Calcium 8.3 L (8.5-10.1) mg/dL Total Bilirubin 0.5 (0.2-1.0) mg/dL AST 15 (15-37) U/L ALT 23 (14-59) U/L Alkaline Phosphatase 74 (46-116) U/L Troponin I 0.073 H* (0.000-0.056) ng/mL Total Protein 6.7 (6.4-8.2) g/dL Albumin 3.1 L (3.4-5.0) g/dL Globulin 3.6 Albumin/Globulin Ratio 0.86 Urine Color (YELLOW) Urine Appearance (CLEAR) Urine pH (5.0-9.0) Ur Specific Hatch (1.005-1.030) Urine Protein (NEGATIVE) Urine Glucose (UA) (NEGATIVE) Urine Ketones (NEGATIVE) Urine Occult Blood (NEGATIVE) Urine Nitrite (NEGATIVE) Urine Bilirubin (NEGATIVE) Urine Urobilinogen (0.2-1.0) mg/dL Ur Leukocyte Esterase (NEGATIVE) Urine Opiates Screen (NEGATIVE) Ur Oxycodone Screen (NEGATIVE) Urine Methadone Screen (NEGATIVE) Ur Barbiturates Screen (NEGATIVE) U Tricyclic Antidepress (NEGATIVE) Ur Phencyclidine Scrn (NEGATIVE) Ur Amphetamine Screen (NEGATIVE) U Methamphetamines Scrn (NEGATIVE) Urine MDMA Screen (NEGATIVE) U Benzodiazepines Scrn (NEGATIVE) Urine Cocaine Screen (NEGATIVE) U Marijuana (THC) Screen (NEGATIVE) 08/10/19 08/10/19 Range/Units 09:16 09:16 WBC (5.0-10.0) 10^3/uL RBC (4.2-5.4) 10^6/uL Hgb (12.0-16.0) g/dL Hct (37.0-47.0) % MCV (80-100) fL MCH (27.0-34.0) pg MCHC (33.0-35.0) g/dL Plt Count (150-450) 10^3/uL Neut % (Auto) (42.2-75.2) % Lymph % (Auto) (20.5-50.1) % Barrow % (Auto) (2-8) % Eos % (Auto) (1.0-3.0) % Baso % (Auto) (0.0-1.0) % Sodium (136-145) mmol/L Potassium (3.5-5.1) mmol/L Chloride (98-107) mmol/L Carbon Dioxide (21-32) mmol/L Anion Gap (7-13) mEq/L BUN (7-18) mg/dL Creatinine (0.55-1.02) mg/dL Est Cr Clr Drug Dosing mL/min Estimated GFR (MDRD) BUN/Creatinine Ratio (No establ ref range) Glucose (74-99) mg/dL Lactic Acid (0.4-2.0) mmol/L Calcium (8.5-10.1) mg/dL Total Bilirubin (0.2-1.0) mg/dL AST (15-37) U/L ALT (14-59) U/L Alkaline Phosphatase (46-116) U/L Troponin I (0.000-0.056) ng/mL Total Protein (6.4-8.2) g/dL Albumin (3.4-5.0) g/dL Globulin Albumin/Globulin Ratio Urine Color Yellow (YELLOW) Urine Appearance Clear (CLEAR) Urine pH 7.0 (5.0-9.0) Ur Specific Hatch 1.025 (1.005-1.030) Urine Protein Negative (NEGATIVE) Urine Glucose (UA) Negative (NEGATIVE) Urine Ketones Negative (NEGATIVE) Urine Occult Blood Negative (NEGATIVE) Urine Nitrite Negative (NEGATIVE) Urine Bilirubin Negative (NEGATIVE) Urine Urobilinogen 0.2 (0.2-1.0) mg/dL Ur Leukocyte Esterase Negative (NEGATIVE) Urine Opiates Screen Negative (NEGATIVE) Ur Oxycodone Screen Negative (NEGATIVE) Urine Methadone Screen Negative (NEGATIVE) Ur Barbiturates Screen Negative (NEGATIVE) U Tricyclic Antidepress Negative (NEGATIVE) Ur Phencyclidine Scrn Negative (NEGATIVE) Ur Amphetamine Screen Negative (NEGATIVE) U Methamphetamines Scrn Negative (NEGATIVE) Urine MDMA Screen Negative (NEGATIVE) U Benzodiazepines Scrn Negative (NEGATIVE) Urine Cocaine Screen Negative (NEGATIVE) U Marijuana (THC) Screen Negative (NEGATIVE) Meds: Medications Generic Name Dose Route Start Last Admin Trade Name Ese PRN Reason Stop Dose Admin Ceftriaxone Sodium 1 gm/ 50 mls @ 100 mls/hr 08/10/19 09:43 Sodium Chloride IV 08/10/19 10:12 ONETIME ONE - Radiology Interpretation Free Text/Narrative:: PROCEDURE INFORMATION: Exam: XR Chest, 1 View Exam date and time: 08/10/2019 9:04 AM Age: 54 years old Clinical indication: Other: Syncope TECHNIQUE: Imaging protocol: XR of the chest Views: 1 view. COMPARISON: CR Chest 2V 07/04/2019 9:19 AM FINDINGS: Lungs: There is diffuse bilateral perihilar haziness. This finding is more pronounced compared to previously. The finding may be exaggerated by lower lung volumes as compared to the previous study. No other pulmonary infiltrate or consolidation. Pleural space: Unremarkable. No pleural effusion. No pneumothorax. Heart/Mediastinum: Unremarkable. No cardiomegaly. Bones/joints: Unremarkable. IMPRESSION: Diffuse perihilar haziness may represent edema or pneumonia. Thank you for allowing us to participate in the care of your patient. Dictated and Authenticated by: Lavon Lynch MD 08/10/2019 9:18 AM Central Time ([place] & [place]) Departure - Departure Time of Disposition: 09:50 Disposition: DC/Tfer to Acute Hospital 02 Condition: Fair Clinical Impression: Elevated troponin I level Syncope Qualifiers: Syncope type: unspecified Qualified Code(s): R55 - Syncope and collapse Pneumonia Qualifiers: Pneumonia type: due to unspecified organism Laterality: unspecified laterality Lung location: unspecified part of lung Qualified Code(s): J18.9 - Pneumonia, unspecified organism - Discharge Information *PRESCRIPTION DRUG MONITORING PROGRAM REVIEWED*: Not Applicable *COPY OF PRESCRIPTION DRUG MONITORING REPORT IN PATIENT YANDY: Not Applicable Forms: Interfacility Transfer [facility] Care Plan Goals: Discussed the patient's history, examination, lab results, EKG and x-ray results with Dr. Sanchez. Dr. Sanchez accepted the patient for continued evaluation and treatment as a patient at [facility] in [place]. The patient will be transported by [facility]. Sepsis Event Note - Evaluation Sepsis Screening Result: No Definite Risk - Focused Exam Vital Signs: Vital Signs Temp Pulse Resp BP Pulse Ox 08/10/19 08:33 35.8 C L 108 H 15 124/69 86 L Date Exam was Performed: 08/10/19 Time Exam was Performed: 09:50 - My Orders Last 24 Hours: My Active Orders 08/10/19 08:19 EKG Documentation Completion [RC] STAT 08/10/19 08:46 CULTURE BLOOD [BC] Stat 08/10/19 09:35 CORONAVIRUS COVID-19 RAPID PCR [MOLEC] Urgent 08/10/19 09:42 CULTURE BLOOD [BC] Stat 08/10/19 09:43 cefTRIAXone [Rocephin] 1 gm Sodium Chloride 0.9% [Normal Saline] 50 ml IV ONETIME - Assessment/Plan Last 24 Hours: My Active Orders 08/10/19 08:19 EKG Documentation Completion [RC] STAT 08/10/19 08:46 CULTURE BLOOD [BC] Stat 08/10/19 09:35 CORONAVIRUS COVID-19 RAPID PCR [MOLEC] Urgent 08/10/19 09:42 CULTURE BLOOD [BC] Stat 08/10/19 09:43 cefTRIAXone [Rocephin] 1 gm Sodium Chloride 0.9% [Normal Saline] 50 ml IV ONETIME
[2019-08-10 09:22] LABS: ANION GAP 4.2 mEq/L (7-13)
[2019-08-10] MEDS ORDERED: cefTRIAXone 1 GM in Sodium Chloride 0.9% 50 ML IV ONE (09:43)
== END 2019-08-10 10:25 ==
LOC: DL.ED 08:18
DX: J18.9 Pneumonia, unspecified organism (principal); R55 Syncope and collapse; R74.8 Abnormal levels of other serum enzymes; K21.9 Gastro-esophageal reflux disease without esophagitis; Z79.82 Long term (current) use of aspirin; F32.9 Major depressive disorder, single episode, unspecified; E78.00 Pure hypercholesterolemia, unspecified; Z79.899 Other long term (current) drug therapy; Z20.828 Contact with and (suspected) exposure to other viral communicable diseases
CPT/HCPCS: 36415; 71045; 80053; 80305; 81003; 83605; 84484; 85025; 87040; 93005; 96365; 99284; 99285; J0696; J7050; U0002

== ENCOUNTER 2019-09-25 07:56 | Emergency (ER) | payer MEDICARE, MEDICAID ==
--- NOTE | 2019-09-25 08:18 | CT ---
PROCEDURE INFORMATION: Exam: CT Head Without Contrast Exam date and time: 09/25/2019 8:05 AM Age: 54 years old Clinical indication: Left sided weakness TECHNIQUE: Imaging protocol: Computed tomography of the head without contrast. Radiation optimization: All CT scans at this facility use at least one of these dose optimization techniques: automated exposure control; mA and/or kV adjustment per patient size (includes targeted exams where dose is matched to clinical indication); or iterative reconstruction. Other technique: STROKE PROTOCOL was implemented. COMPARISON: No relevant prior studies available. FINDINGS: Brain: No acute intracranial hemorrhage. No evidence of intra or extra-axial masses or mass effect. No acute CT identifiable ischemic infarction. Small sites of the encephalomalacia are present within the bilateral cerebellar hemispheres. There is encephalomalacia the high right frontoparietal lobe and scattered peripheral left frontoparietal encephalomalacia as well. Moderate volume scattered periventricular and subcortical white matter hypodensities are demonstrated. Old appearing lacunar infarcts left caudate head and thalamus. Ventricles: Normal. No ventriculomegaly. Bones/joints: Incidental incomplete fusion C1 ring. No acute fracture. Sinuses: Visualized sinuses are unremarkable. No fluid levels. Mastoid air cells: Visualized mastoid air cells are well aerated. Soft tissues: Unremarkable. IMPRESSION: 1. No evidence of acute intracranial pathology. Please note that CT is known to be relatively insensitive to acute ischemia in the first 24-48 hours and MRI may be useful if clinically indicated. 2. Advanced burden of chronic ischemic microvascular change and multifocal remote infarcts for age. ASSESSMENT: ASPECTS ([place] Stroke Program Early CT Score) is 10.
--- NOTE | 2019-09-25 08:19 | EDM.PDOC ---
ED HPI GENERAL MEDICAL PROBLEM - General Chief Complaint: Neuro Symptoms/Deficits Stated Complaint: STROKE CODE Time Seen by Provider: 09/25/19 08:02 Source of Information: Reports: EMS History Limitations: Reports: Language Barrier (The patient is deaf and can only sign with her right hand. ) - History of Present Illness INITIAL COMMENTS - FREE TEXT/NARRATIVE: This 54 yo female patient was brought to the ED by [facility] due to left sided weakness. The patient was found in her bed this morning at 0630 with current symptoms. The patient's caregiver reports the patient was last seen normal at 2000 last night. The patient comes from a shelter and has not been sleeping much lately. The patient was recently started on Melatonin and staff were advised not to wake the patient up. The patient normally walks around, but has "her own sign language". The caregiver that was present could not communicate with the patient. Onset: Today Duration: Constant Location: Reports: Upper Extremity, Left, Lower Extremity, Left Quality: Reports: Other Severity: Severe Improves with: Reports: None Worsens with: Reports: None - Related Data Allergies Allergy/AdvReac Type Severity Reaction Status Date / Time No Known Allergies Allergy Verified 09/25/19 08:09 Home Meds: Home Meds Aspirin 325 mg PO DAILY 09/27/14 [History] PARoxetine [Paxil] 20 mg PO DAILY 09/27/14 [History] Vitamin E (dl, acetate) [Vitamin E] 400 units PO DAILY 09/27/14 [History] atorvaSTATin [Lipitor] 10 mg PO BEDTIME 09/27/14 [History] risperiDONE [RisperiDAL] 0.5 mg PO ASDIRECTED 09/27/14 [History] Omeprazole 20 mg PO DAILY 10/22/17 [History] polyethylene glycoL 3350 [MiraLAX] 17 gm PO ASDIRECTED 10/22/17 [History] risperiDONE 1 mg PO TID 10/22/17 [History] Dextromethorphan/guaiFENesin [Robitussin DM] 5 ml PO Q6HR PRN 09/25/19 [History] Melatonin 3 mg PO BEDTIME 09/25/19 [History] Past Medical History HEENT History: Reports: Impaired Vision, Other (See Below) Other HEENT History: wears glasses, is deaf, understands sign language Cardiovascular History: Reports: Congenital Septal Defect, Heart Murmur, High Cholesterol, Other (See Below) Respiratory History: Reports: SOB, Other (See Below) Other Respiratory History: wears O2 at night and PRN days Gastrointestinal History: Reports: GERD Genitourinary History: Reports: Urinary Incontinence ZIGZAG STITCHER History: Reports: None Musculoskeletal History: Reports: None Neurological History: Reports: None Psychiatric History: Reports: Depression, Developmental Delay, Learning Disability, Psychosis Other Psychiatric History: mood disorder with psychosis, profound hearing loss, mild mental retardation Endocrine/Metabolic History: Reports: None Hematologic History: Reports: None Immunologic History: Reports: None Oncologic (Cancer) History: Reports: None Other Dermatologic History: congenital rubella disorder - Infectious Disease History Infectious Disease History: Reports: None - Past Surgical History Head Surgeries/Procedures: Reports: None Other GI Surgeries/Procedures: hiatal hernia Social & Family History - Family History Family Medical History: Unobtainable - Caffeine Use Caffeine Use: Reports: Coffee - Living Situation & Occupation Living situation: Reports: Other Occupation: Disabled ED ROS GENERAL - Review of Systems Review Of Systems: Comprehensive ROS is negative, except as noted in HPI. ED EXAM, NEURO - Physical Exam Exam: See Below Exam Limited By: No Limitations General Appearance: Alert, WD/WN, Moderate Distress Eye Exam: Bilateral Eye: EOMI, Normal Inspection, PERRL Ears: Normal External Exam, Normal Canal, Other (The patient is deaf) Nose: Normal Inspection, Normal Mucosa, No Blood Throat/Mouth: Normal Inspection, Normal Lips Head Exam: Atraumatic, Normocephalic Neck: Normal Inspection, Supple, Full Range of Motion Respiratory/Chest: No Respiratory Distress, Lungs Clear, Normal Breath Sounds, No Accessory Muscle Use, Chest Non-Tender Cardiovascular: Normal Peripheral Pulses, Regular Rate, Rhythm, No Edema, No Gallop, No JVD, No Murmur, No Rub GI/Abdominal: Normal Bowel Sounds, Soft, Non-Tender, No Organomegaly, No Distention, No Abnormal Bruit, No Mass (Female) Exam: Deferred Rectal (Female) Exam: Deferred Neurological: Alert, Other (the patient has no purposeful movement of her left upper extremity or left lower extremity. ) Extremities: Normal Inspection, Limited Range of Motion (no left sided purposeful movements) Psychiatric: Normal Affect, Normal Mood Skin Exam: Warm, Dry, Intact, Normal Color, No Rash Course - Vital Signs Last Recorded V/S: Last Vital Signs Temp 36.2 C 09/25/19 08:20 Pulse 96 09/25/19 08:20 Resp 13 09/25/19 08:20 BP 119/79 09/25/19 08:20 Pulse Ox 91 L 09/25/19 08:20 - Orders/Labs/Meds Orders: Active Orders 24 hr Category Date Time Status EKG Documentation Completion [RC] STAT Care 09/25/19 07:57 Active Labs: Laboratory Tests 09/25/19 09/25/19 09/25/19 Range/Units 08:12 08:19 08:19 WBC 9.3 (5.0-10.0) 10^3/uL RBC 6.43 H (4.2-5.4) 10^6/uL Hgb 16.3 H (12.0-16.0) g/dL Hct 57.3 H (37.0-47.0) % MCV 89.1 D (80-100) fL MCH 25.3 L (27.0-34.0) pg MCHC 28.4 L (33.0-35.0) g/dL Plt Count 220 (150-450) 10^3/uL Neut % (Auto) 86.7 H (42.2-75.2) % Lymph % (Auto) 7.2 L (20.5-50.1) % [place] % (Auto) 5.7 (2-8) % Eos % (Auto) 0.1 L (1.0-3.0) % Baso % (Auto) 0.3 (0.0-1.0) % Sodium 143 (136-145) mmol/L Potassium 4.8 (3.5-5.1) mmol/L Chloride 101 (98-107) mmol/L Carbon Dioxide 41 H (21-32) mmol/L Anion Gap 5.8 L (7-13) mEq/L BUN 16 (7-18) mg/dL Creatinine 1.02 (0.55-1.02) mg/dL Est Cr Clr Drug Dosing TNP Estimated GFR (MDRD) 56 BUN/Creatinine Ratio 15.7 (No establ ref range) Glucose 124 H (74-99) mg/dL Calcium 9.1 (8.5-10.1) mg/dL Total Bilirubin 0.5 (0.2-1.0) mg/dL AST 20 (15-37) U/L ALT 26 (14-59) U/L Alkaline Phosphatase 79 (46-116) U/L Troponin I 0.020 (0.000-0.056) ng/mL Total Protein 7.6 (6.4-8.2) g/dL Albumin 3.3 L (3.4-5.0) g/dL Globulin 4.3 Albumin/Globulin Ratio 0.77 COVID-19 (DEMAR) Negative (NEGATIVE) - Re-Assessments/Exams Free Text/Narrative Re-Assessment/Exam: 09/25/19 08:59 An initial call was made to [facility] in [place]. Dr. Luu advised to transfer the patient to [facility] in [place] for interventional neurology. A call was placed to [facility] in [place]. Spoke with Dr. Mcnally who advised to get an MRI and return a call to him. Our MRI is currently nonoperational. A call was placed back to [facility] and the patient was accepted by Dr. Riley in the ED. Departure - Departure Time of Disposition: 08:55 Disposition: DC/Tfer to Acute Hospital 02 Condition: Serious Clinical Impression: CVA (cerebral vascular accident) Qualifiers: CVA mechanism: unspecified Qualified Code(s): I63.9 - Cerebral infarction, unspecified - Discharge Information *PRESCRIPTION DRUG MONITORING PROGRAM REVIEWED*: Not Applicable *COPY OF PRESCRIPTION DRUG MONITORING REPORT IN PATIENT YANDY: Not Applicable Forms: ED Department Discharge, Interfacility Transfer EMTALA Care Plan Goals: Discussed the patient's history, examination, initial lab results, CT results and treatments with Dr. Riley (Emergency Department with [facility] in [place]). Dr. Riley accepted the patient for continued evaluation and further management. The patient will be transported by [facility]. Sepsis Event Note (ED) - Focused Exam Vital Signs: Vital Signs Temp Pulse Resp BP Pulse Ox 09/25/19 08:20 36.2 C 96 13 119/79 91 L - My Orders Last 24 Hours: My Active Orders 09/25/19 07:57 EKG Documentation Completion [RC] STAT - Assessment/Plan Last 24 Hours: My Active Orders 09/25/19 07:57 EKG Documentation Completion [RC] STAT
[2019-09-25 08:24] VITALS: BP 119/79; PULSE 96
[2019-09-25 08:48] LABS: ANION GAP 5.8 mEq/L (7-13); CHLORIDE,CL 101 mmol/L (98-107); SODIUM,NA 143 mmol/L (136-145)
== END 2019-09-25 09:30 ==
LOC: DL.ED 07:56
DX: I63.9 Cerebral infarction, unspecified (principal); F32.9 Major depressive disorder, single episode, unspecified; E78.00 Pure hypercholesterolemia, unspecified; K21.9 Gastro-esophageal reflux disease without esophagitis; Z20.828 Contact with and (suspected) exposure to other viral communicable diseases; Z79.82 Long term (current) use of aspirin; Z79.899 Other long term (current) drug therapy
CPT/HCPCS: 36415; 70450; 80053; 84484; 85025; 93005; 99285-25; U0002